=== PATIENT | female | born 1950 | race Caucasian/White ===

== ENCOUNTER → 2016-07-11 19:06 | Outpatient (CLI) | payer BC ==
[2015-04-19 03:50] VITALS: BMI 21.0
[~2016-07-11 19:06] MED LIST: AUGMENTIN 875-11 TAB PO; PERCOCET 10/3251 TA1 PO
== END | disposition home or self-care (01) ==
LOC: D.MAMMO 13:15
DX: Z12.31 Encounter for screening mammogram for malignant neoplasm of breast (principal)

== ENCOUNTER → 2016-09-12 17:16 | Outpatient (CLI) | payer BC ==
[2015-04-19 03:50] VITALS: BMI 21.0
== END | disposition home or self-care (01) ==
LOC: D.MAMMO 08-15 09:30
DX: R92.8 Other abnormal and inconclusive findings on diagnostic imaging of breast (principal)

== ENCOUNTER → 2016-11-04 16:29 | Outpatient (CLI) | payer BC, MEDICARE ==
[2015-04-19 03:50] VITALS: BMI 21.0
== END | disposition home or self-care (01) ==
LOC: D.MAMMO 10-21 11:00
DX: R92.8 Other abnormal and inconclusive findings on diagnostic imaging of breast (principal)

== ENCOUNTER → 2018-03-13 13:08 | Outpatient (CLI) | payer BC, MEDICARE ==
[2015-04-19 03:50] VITALS: BMI 21.0
== END | disposition home or self-care (01) ==
LOC: D.CT 13:00
DX: I65.23 Occlusion and stenosis of bilateral carotid arteries (principal)

== ENCOUNTER → 2018-03-23 11:22 | Outpatient (CLI) | payer BC, MEDICARE ==
[2015-04-19 03:50] VITALS: BMI 21.0
== END | disposition home or self-care (01) ==
LOC: D.US 11:22
DX: E04.1 Nontoxic single thyroid nodule (principal)

== ENCOUNTER 2019-02-25 10:42 | Emergency (ER) | payer BC, MEDICARE ==
[~2019-02-25] VITALS: Ht 167.6 cm; Wt 55.5 kg
[2019-02-25 10:48] VITALS: BP 141/83; Ht 167.6 cm; Wt 55.5 kg
[2019-02-25 11:43] LABS: APPEARANCE HAZY (CLEAR); BILIRUBIN NEGATIVE (NEGATIVE); COLOR YELLOW (YELLOW); GLUCOSE NEGATIVE (NEGATIVE); KETONE NEGATIVE (NEGATIVE); NITRITE NEGATIVE (NEGATIVE); PROTEIN NEGATIVE (NEGATIVE); UROBILINOGEN NORMAL (NORMAL)
[2019-02-25 11:44] LABS: BACTERIA NONE SEEN /hpf (NEGATIVE); EPITHELIAL CELLS 0-5 /hpf (0-5)
[2019-02-25] MEDS ORDERED: MACROBID100 MG PO (12:17)
[2019-02-25] MEDS ORDERED: CYCLOBENZAPRINE10 MG PO (12:18)
[2019-02-25] MEDS ORDERED: EC-NAPROSYN500 MG PO (12:18)
== END 2019-02-25 12:50 | disposition home or self-care (01) ==
LOC: D.ER 10:42
PROVIDERS: Family Medicine
DX: S16.1XXA Strain of muscle, fascia and tendon at neck level, initial encounter (principal); V49.9XXA Car occupant (driver) (passenger) injured in unspecified traffic accident, initial encounter; S29.012A Strain of muscle and tendon of back wall of thorax, initial encounter; N39.0 Urinary tract infection, site not specified

== ENCOUNTER → 2019-11-07 11:15 | Outpatient (CLI) | payer MEDICARE, BC ==
[2019-02-25 10:48] VITALS: BMI 19.7
[~2019-11-07 11:15] MED LIST changes: +CYCLOBENZAPRINE10 MG PO; +EC-NAPROSYN500 MG PO; +MACROBID100 MG PO
== END | disposition home or self-care (01) ==
LOC: D.MRI 10-29 11:00
PROVIDERS: ATTEND Family Medicine
DX: M25.519 Pain in unspecified shoulder (principal)